=== PATIENT | male | born 1955 | race Two or more races ===

== ENCOUNTER → 2023-02-03 | Day surgery (SDC) | payer MEDICARE, BC ==
[~2023-02-03] MED LIST: DEXAMETHASONE SOD PHOSPHATE 4 MG/ML 1 ML VIAL IV ONE; GLYCOPYRROLATE 0.2 MG/ML 2 ML VIAL ONE; HYDROmorphone 0.5 MG/0.5 ML SYRINGE IVP PRN; LACTATED RINGERS 1,000 ML IV SCH; LIDOCAINE 1% (10MG/ML) FOR IV START INTRADERMA PRN; LIDOCAINE 2% INJ 20 MG/ML (2 ML VIAL) ONE; MIDAZOLAM 2 MG/2 ML VIAL IV PRN; MIDAZOLAM 2 MG/2 ML VIAL ONE; NEOSTIGMINE 1 MG/ML 10 ML VIAL ONE; ONDANSETRON 4 MG/2 ML VIAL IVP ONE; PHENYLEPHRINE-0.9% NACL SYG 1,000 MCG/10 ML SYRINGE ONE; PROPOFOL 10 MG/ML 20 ML VIAL IV ONE; ROCURONIUM 10 MG/ML (5 ML VIAL) IV ONE; SUCCINYLCHOLINE CHLORIDE 200 MG/10 ML VIAL IV ONE
[2023-02-03 13:54] LABS: Glucose,Whole Blood 82 mg/dL (70-110)
--- NOTE | 2023-02-03 14:07 | CT ---
EXAMINATION TYPE: CT chest wo con CT DLP: 667.9 mGycm, Automated exposure control for dose reduction was used. DATE OF EXAM: 02/03/2023 1:41 PM COMPARISON none CLINICAL INDICATION:Male, 67 years old with history of ION PROTOCOL; [facility], pre-op bronch TECHNIQUE: Multiple axial images were obtained through the chest without IV contrast. Lack of IV or o ral contrast limits evaluation of solid and hollow organ viscera. . Coronal and sagittal reformats re viewed. FINDINGS: LUNGS/ PLEURA: No pleural effusion, pneumothorax, focal consolidation. Right perihilar soft tissue ma ss measuring 3.6 x 2.7 cm (series 3, image 166. Left upper lobe 3.7 mm groundglass pulmonary nodule ( series 4, image 78. Additional few subpleural pulmonary nodules measuring up to 3 mm. AIRWAY: Patent and unremarkable.. HEART: Size within normal limits. No pericardial effusion. Mild coronary artery calcifications. MEDIASTINUM: No gross evidence of adenopathy. VASCULATURE: No aortic aneurysm. Mild atherosclerotic calcification of the aorta and its branches. MUSCULOSKELETAL: Mild disc degeneration changes are present throughout the thoracolumbar spine. No ac harvey osseous abnormality. No aggressive osseous lesion. SOFT TISSUES/LYMPH NODES: Unremarkable. LOWER NECK: No significant findings. UPPER ABDOMEN: Large bilateral renal cysts with some demonstrating thin peripheral calcification. Lar gest in the visualized right kidney measures up to 7.2 cm. Small hiatal hernia. IMPRESSION: 1. Right perihilar soft tissue mass measuring up to 3.5 cm concerning for malignancy. 2. Few scattered pulmonary nodules measuring up to 3 mm.
--- NOTE | 2023-02-03 16:06 | FL ---
Intraoperative/procedural fluoroscopic services were provided. Total fluoroscopy time is 3 minutes 55 seconds with a total of 2 submitted images to PACS. Please see the operative/procedural note for fur ther details. DAP: 27.91 mGycm2
[2023-02-03 16:26] VITALS: TEMP 97.2
--- NOTE | 2023-02-03 16:29 | P.PCN ---
Date of Procedure: 02/03/23 Operative Findings: Preoperative Diagnosis: Right upper lobe mass Postoperative Diagnosis: Right upper lobe nodule mass Mediastinal adenopathy Procedure(s) Performed: Flexible bronchoscopy Robotic-assisted bronchoscopy and addition to radial ultrasound evaluation of the pulmonary mass Robotic-assisted transbronchial needle aspirate, transbronchial biopsies, transbronchial brushing of the right upper lobe mass in addition to a bronchioloalveolar lavage EBUS TBNA of a station 7 LN Anesthesia: BAILEYA Surgeon: Rolf Stock Estimated Blood Loss (ml): 0 Pathology: other Condition: stable Disposition: same day Operative Findings: A physical exam was performed. Informed consent was obtained from the patient after explaining all the risks (pneumothorax, life threatening bleeding, infection and adverse effects due to medications), benefits and alternatives to the procedure which the patient appeared to understand and so stated. The patient was connected to the monitoring devices. General anesthesia was induced and the patient was intubated by anesthesia. A final timeout was performed and the procedure confirmed by the attending staff bronchoscopist. The bronchoscope was inserted and the airway examined. The flexible bronchoscope was removed and the robotic bronchoscope was inserted. Registration was completed. I next guided the robotic bronchoscope using the navigation system into the right upper lobe posterior segment. Once in proper position, the bronchoscope was frozen. The radial EBUS probe was placed through the bronchoscope and confirmed abnormal u/s images vs normal lung. A needle was placed through the working channel and under fluoroscopic guidance, we sampled the area thought to have the mass twice. We then used a cloud biopsy pattern with ultrasound confirmation for 2 additional passes with the needle. U/S evaluation was then used to reconfirm location. Forceps were next introduced through working channel and extended the appropriate distance and 3 transbronchial biopsies were performed using fluoroscopic guidance. The u/s probe was then reinserted to confirm location. When confirmed this process was repeated for a total of 6 transbronchial biopsies. After reassessment with EBUS probe, a brush was placed through the extendable working channel for 1 pass with fluoroscopic guidance. U/S evaluation was then used to confirm location. 40ml of saline was then instilled into the area of the lesion. The robotic bronchoscope was removed and the airway inspected with a flexible bronchoscope and 10 ml of effluent from the BAL was collected. Following that, the endobronchial ultrasound was inserted for mediastinal lymph node evaluation. A complete examination is grossly patient's was done. The patient was found to have a 15x10 mm subcarinal lymph node. Using a 22-gauge needle, transbronchial needle aspirate of the subcarinal station 7 lymph node was done. A total of 3 passes were obtained without any complications. Endobronchial ultrasound was removed. No additional significantly enlarged lymph nodes were seen. Flexible bronchoscope was inserted and regular suctioning was done. At the completion of the procedure, no residual secretions or bloody material within the airway. The bronchoscope was removed. The patient was extubated. FINDINGS: 1.The airways appeared normal 2 Successful navigation, ultrasonographic identification, and biopsies of right upper lobe pulmonary mass 3.The the radial ultrasound view was (Concentric/Eccentric)}. 4 endobronchial ultrasound and mediastinal lymph node evaluation and transbronchial needle aspirate station 7 lymph node measuring 15x10 mm in size. RECOMMENDATIONS: Await pathology and cytology results The referring physician will be alerted to the results when available. The patient was advised to follow up with the referring physician with the biopsy results Patient will be called with results.
[2023-02-03 16:55] LABS: Glucose,Whole Blood 96 mg/dL (70-110)
[2023-02-03 17:00] VITALS: PULSE 67
--- NOTE | 2023-02-03 17:00 | XR ---
EXAMINATION TYPE: XR chest 1V DATE OF EXAM: 02/03/2023 4:53 PM COMPARISON: CT chest 02/03/2023 TECHNIQUE: XR chest 1V Frontal view of the chest. CLINICAL INDICATION:Male, 67 years old with history of Postbiopsy; FINDINGS: Lungs/Pleura: There is no evidence of pleural effusion, focal consolidation, or pneumothorax. Right perihilar mass is better appreciated on CT. Pulmonary vascularity: Unremarkable. Heart/mediastinum: Cardiomediastinal silhouette is unremarkable. Musculoskeletal: No acute osseous pathology. IMPRESSION: No pneumothorax status post biopsy.
[2023-02-03 17:15] VITALS: BP 135/77; RESP 16
== END ==
LOC: ORWHC2ENDO 12:04
PROVIDERS: ATTEND Internal Medicine Critical Care Medicine
DX: C34.11 Malignant neoplasm of upper lobe, right bronchus or lung (principal); R91.1 Solitary pulmonary nodule; R59.0 Localized enlarged lymph nodes; I10 Essential (primary) hypertension; I25.10 Atherosclerotic heart disease of native coronary artery without angina pectoris; E78.5 Hyperlipidemia, unspecified; E11.9 Type 2 diabetes mellitus without complications
CPT/HCPCS: 88108; 88305; 88173; 88342; 88341; 71045; 71250; 31628; 31629; 31623; 31624; 31652; J2250; J0330; J1100; J2710; J2405; J2704; J2001; J2371; S2900